=== PATIENT | male | born 1970 | race African-American/Black ===

== ENCOUNTER 2017-01-02 15:42 | Emergency (ER) | payer OTHER ==
[2017-01-02 17:23] LABS: BASOPHIL 0.6 % (0-2); EOSINOPHIL 4.4 % (0-5); HCT 42.9 % (42.0-52.0); HGB 14.8 g/dl (13.2-18.0); LYMPHOCYTE 46.2 % (15-48); MCH 27.9 pg (25.0-31.0); MCHC 34.5 g/dL (32.0-36.0); MCV 80.9 fL (78.0-100.0); MONOCYTE 12.3 % (0-12); MPV 8.6 fL (6.0-9.5); NEUTROPHIL 36.5 % (41-80); PLT 324 K/uL (150-400); RDW 14.2 % (11.5-14.0); WBC 5.4 K/uL (4.0-10.5)
[2017-01-02 17:38] LABS: ALBUMIN 4.4 g/dL (3.5-5.0); BILIRUBIN - TOTAL 0.4 mg/dL (0.1-1.0); CREATININE 1.4 mg/dL (0.7-1.2); GLOBULIN (CALCULATION) 3.1 g/dL (2.2-4.2); POTASSIUM 4.1 mmol/L (3.5-5.1); TOTAL PROTEIN 7.5 g/dL (6.4-8.3)
== END 2017-01-02 20:01 | disposition home or self-care (01) ==
LOC: FER 15:42
PROVIDERS: Emergency Medicine
DX: N13.2 Hydronephrosis with renal and ureteral calculous obstruction (principal); I10 Essential (primary) hypertension
CPT/HCPCS: 36415; 80053; 85025; J1170; J1885; J2405